=== PATIENT | female | born 1980 | race Caucasian/White ===

== ENCOUNTER 2024-08-31 12:44 | Emergency (ER) | payer OTHER ==
[2024-08-31] MEDS: Sodium Chloride 0.9% 1,000 ML IV ONE (12:55)
[2024-08-31] MEDS: HYDROmorphone 1 MG/ML Syringe IVPUSH PRN (13:05)
[2024-08-31] MEDS: Ondansetron 4 MG/2 ML SDV IVPUSH ONE (14:09)
[2024-08-31] MEDS: ceFAZolin 1 GM Vial IVPUSH ONE (14:09)
[2024-08-31] MEDS: Bupivacaine 0.5% 30 ML SDV INJECT PRN (14:10)
== END 2024-08-31 14:01 | disposition short-term general hospital (02) ==
LOC: VM.ED 12:44
DX: S98.122A Partial traumatic amputation of left great toe, initial encounter (principal); W31.89XA Contact with other specified machinery, initial encounter; Y93.89 Activity, other specified
CPT/HCPCS: 64450; 73630-LT; 96374; 99284-25; J0665; J0690; J1171; J2405; J7030